=== PATIENT | female | born 1985 | race Caucasian/White ===

== ENCOUNTER 2024-08-14 17:36 | Emergency (ER) | payer MEDICAID ==
[~2024-08-14] VITALS: Ht 165.1 cm; Wt 55.0 kg
[2024-08-14 17:41] VITALS: O2SAT 98
[2024-08-14 18:04] VITALS: BP 127/89; PULSE 109; RESP 19; TEMP 37.1; O2SAT 97
[2024-08-14] MEDS: SODIUM CHLORIDE 0.9% 1,000 ML IV ONE (18:29)
[2024-08-14] MEDS: FOLIC ACID 1 MG, THIAMINE HCL 100 MG, MVI, ADULT NO.1 10 ML in DEXTROSE 5% WATER 1,000 ML IV ONE (18:30)
== END 2024-08-14 19:19 | disposition left against medical advice (07) ==
LOC: ER 17:36
DX: F10.129 Alcohol abuse with intoxication, unspecified (principal); Z88.0 Allergy status to penicillin; Y90.9 Presence of alcohol in blood, level not specified
CPT/HCPCS: 99284; 96365; J3490 ×2; J3411; J7070; J7030